=== PATIENT | male | born 1950 | race Caucasian/White ===

== ENCOUNTER 2024-08-28 11:54 | Emergency (ER) | payer MEDICARE, MEDICAID, SELFPAY ==
[2024-08-28 11:55] VITALS: BMI 29.6
[2024-08-28 12:29] VITALS: BP 175/94; PULSE 115; RESP 22; TEMP 36.7; O2SAT 94; BMI 29.6
--- NOTE | 2024-08-28 12:32 | PD.EDRME ---
Rapid Medical Screening Exam E Arrival date/time: 08/28/24 11:54 This is a 74-year-old male that comes into the emergency room with complaints of constipation and abdominal pain. Patient states that he has not been able to have a bowel movement for a few days. Patient has been taking Duca locks with no relief. Patient has a history of COPD high blood pressure hyperlipidemia and diabetes. I have greeted and performed a focused initial assessment of this patient. Initial appropriate labs ordered at this time. A comprehensive ED assessment and evaluation of the patient and analysis of all test and completion of medical decision making process will be conducted by additional ED provider. Chief Complaint: Abdominal Pain Time Seen by Provider: 08/28/24 12:15 Vital signs: Vital Signs Temperature 98.0 F 08/28/24 12:29 Pulse Rate 115 H 08/28/24 12:29 Respiratory Rate 22 H 08/28/24 12:29 Blood Pressure 175/94 H 08/28/24 12:29 Pulse Oximetry (%) 94 L 08/28/24 12:29 Oxygen Delivery Method Room Air 08/28/24 12:29
--- NOTE | 2024-08-28 12:57 | XR_ITS ---
Examination: Abdominal series 3 views including upright PA chest TECHNIQUE: Upright PA chest AP upright AP supine abdomen 3 views Standing comment: August 28, 2024 1417 hours Comparison August 26, 2017 INDICATIONS: Abdominal pain and constipation today. FINDINGS: Atelectasis versus pneumonia right base Moderate air and stool throughout the colon No free air Osseous structures intact IMPRESSION: Atelectasis versus pneumonia right base Moderate air and stool throughout the colon
--- NOTE | 2024-08-28 12:57 | PC.NURSE ---
PT IN TODAY FOR NO BM X2 DAYS. PT STATES THAT HE HAS REGULAR BM'S DAILY. PT DID TAKE OTC MEDICATION AND PRESENTS WITH CRAMPING AND PAIN TO THE LOWER RIGHT QUAD. PT RATE 10/10 AT THIS TIME AND COMES AND GOES. LUCIANO WELDON INTO SEE PT AND WILL FOLLOW THROUGH WITH ORDERS
--- NOTE | 2024-08-28 12:58 | EDNOTE_ITS ---
<Statement entered by Yuko Mckenna MD - 08/28/24 17:25> As co-signing physician, I was present and available for consult prn. I concur with the plan and care as documented by the midlevel provider. ED General RME/HPI General Chief complaint: Abdominal Pain Stated complaint: SEVERE ABD PAIN 02/10. TOOK DULCOLAX FOR CONSTIPAT Time Seen by Provider: 08/28/24 12:15 Arrival date/time: 08/28/24 11:54 Right lower quadrant abdominal pain 2-day history of constipation. Patient states he takes Hasty's daily, usually has a morning constitution after his coffee denies chest pain shortness of breath or difficulty breathing is holding his right lower quadrant at the time of exam. Localized pain 6-8 out of 10 scale sharp waxes and wanes. RME / HPI RME / HPI narrative: 08/28/24 11:54 This is a 74-year-old male that comes into the emergency room with complaints of constipation and abdominal pain. Patient states that he has not been able to have a bowel movement for a few days. Patient has been taking Duca locks with no relief. Patient has a history of COPD high blood pressure hyperlipidemia and diabetes. I have greeted and performed a focused initial assessment of this patient. Initial appropriate labs ordered at this time. A comprehensive ED assessment and evaluation of the patient and analysis of all test and completion of medical decision making process will be conducted by additional ED provider. Related Data Home Medications ?Medication ?Instructions ?Recorded ?Confirmed albuterol sulfate 2.5 mg/3 mL 2.5 mg HHN QID #0 ea 07/22/21 (0.083 %) solution for nebulization simvastatin 40 mg tablet (Zocor) 40 mg PO QDAY #0 tabs 06/21/15 07/23/21 tamsulosin 0.4 mg capsule (Flomax) 0.4 mg PO QDAY ##0 06/21/15 07/23/21 montelukast 10 mg tablet 10 mg PO HS Allergies #0 tab s 04/01/16 07/23/21 (Singulair) albuterol sulfate 90 mcg/actuation 2 puff inhalation Q ID PRN copd 01/11/18 07/23/21 aerosol inhaler (Ventolin HFA) beclomethasone dipropionate 80 2 puff inhalation Q12H PRN copd 01/11/18 07/22/21 mcg/actuation HFA breath activated aerosol (Qvar RediHaler) amlodipine 5 mg tablet 5 mg PO QDAY 07/22/21 finasteride 5 mg tablet 5 mg PO QDAY 07/22/21 fluticasone propionate 50 2 spray intranasal QDAY 07/0307/23/21 mcg/actuation nasal spray,suspension lisinopril 40 mg tablet 40 mg PO QDAY 07/22/2107/23 loratadine 10 mg tablet 10 mg PO QDAY 07/22/2107/23 pioglitazone 15 mg tablet 15 mg PO QDAY 07/22/2107/23 sitagliptin phosphate 100 mg 100 mg PO QDAY 07/22/21 0 07/23/21 tablet (Januvia) ibuprofen 600 mg tablet 600 mg PO TID PRN Pain 07/2307/23/21 lubiprostone 24 mcg capsule 24 mcg PO BID 07/23/21 metformin 500 mg tablet 500 mg PO BID 07/23/2107/23 Previous Rx's ?Medication ?Instructions ?Recorded ciprofloxacin HCl 500 mg tablet 500 mg PO BID #14 tabs 07/23/21 (Cipro) hydrocodone 5 mg-acetaminophen 325 1 tab PO Q6H PRN pa in #30 tabs 07/23/21 mg tablet Allergies Allergy/AdvReac Type Severity Reaction Status Date / Time diphenhydramine (From Allergy Intermediate urine Verified 08/28/24 11:57 Benadryl) retention Review of Systems Review of Systems Narrative Review of Systems: GEN: No fever, no chills, no weight loss EYES: No discharge, no visual changes, no pain HEENT: No ear pain, no congestion, no sore throat PULM: No shortness of breath, no cough, no congestion CV: No chest pain, no dyspnea on exertion, no palpitations GI: No nausea, no vomiting, no diarrhea, + pain, no constipation : No frequency, no urgency, no dysuria MUSC/SKEL: No joint pain, no back pain SKIN: No rash PSYCH: No hallucinations, no depression HEME/LYMPH: No easy bleeding or bruising tendencies NEURO: No weakness, no headache Past Medical History Past Medical History NEUROLOGIC: Negative Neurological Disorders or Seizures CARDIAC: Positive Cardiac Disorders, Hypercholesterolemia (TAKES MED), Hypertension (TAKES MED) and Varicose Veins (KHLOE LEGS HAD PROC); Negative Congestive Heart Failure, Edema or Cellulitis RESPIRATORY: Positive Chronic Obstructive Pulmonary Disease (COPD) (HAS INHALERS,NEBULIZER) and Sleep Apnea (NOT USING CPAP); Negative Tuberculosis GASTROINTESTINAL: Negative Gastrointestinal Disorders or Hepatitis GENITOURINARY: Positive Genitourinary Disorders and Benign Prostatic Hyperplasia (TAKES MED FOR THIS PROC); Negative Renal Disease MUSCULOSKELETAL: Positive Musculoskeletal Disorders and Arthritis ENT: Positive Cataracts (RIGHT 2005) ENDOCRINE: Positive Endocrine Disorders and Diabetes Mellitus Type 2 (TAKES PO MED); Negative Diabetes Mellitus Type 1 HEMATOLOGIC: Negative Blood Disorders PSYCHO/SOCIAL: Positive Anxiety OTHER HISTORY: Positive Chicken Pox, Measles and Mumps; Negative Hospitalization, Autoimmune Disease, Shingles, Falls, Blood Transfusions, Blood Transfusion Reaction, Anesthesia Reactions, Chemotherapy, Radiation Therapy or Cancer Family History FAMILY HISTORY: Positive Family Respiratory Disorders (MOTHER,FATHER,BROTHER (COPD)), Family Gastrointestinal Problems (BROTHER (GALL BLADDER)) and Family Surgery (MOTHER,FATHER,SISTER,BROTHER); Negative Family Psychiatric Problems, Family Cardiac Disorders, Family Cancer or Family Anesthesia Reaction Surgical History SURGICAL: Positive of Shoulder Sx (RIGHT 2017); Negative Pacemaker Social History SMOKING STATUS: Former smoker ED Exam Narrative Physical exam: [General: Obese not in cot no acute distress Head normocephalic HEENT: Within acceptable limits Neck is supple nontender Chest equal chest rise nontender to palpation Respiratory: Clear to auscultation no wheezes crackles or rubs CV: Rate rhythm is regular no murmurs rubs or clicks Abdomen is distended secondary to body habitus soft right lower quadrant tenderness with palpation. Back: No CVA tenderness no spinous process tenderness from cervical spine thoracic and lumbar spine Skin: Intact no petechiae rash induration ulceration or crepitus Extremities: Moving all extremity against resistance cap refill less than 2 seconds neurosensory intact Neuro: Awake alert oriented x3 Glascow coma 15 no focal deficits] Course Course Course Narrative: CT shows moderate amount of stool after an enema was ordered the patient had a large amount of gas and a small amount of stool feels much relief. This time comfortable discharging the patient home there is a concern of a mass in the abdomen which the patient has to follow-up with. Quality Measures none Orders Category Date Time Status Enema Administration NOW Care 08/28/24 15:22 Active Saline [Insert IV] NOW Care 08/28/24 13:[address] abdomen pelvis wo con Stat Exams 08/28/24 13:39 Completed XR abdomen series w chest 1V Stat Exams 08/28/24 12:57 Completed CBC Stat Lab 08/28/24 13:07 Completed Comprehensive Metabolic Panel Stat Lab 08/28/24 13:07 Completed Lipase Stat Lab 08/28/24 13:07 Completed Urinalysis, C/S if Indicated Stat Lab 08/28/24 14:37 Completed Morphine Inj Med 08/28/24 13:03 Discontinued 4 mg IVP X1 ONE Ondansetron Inj [Zofran Inj] Med 08/28/24 13:03 Discontinued 4 mg IV X1 ONE Sodium Chloride 0.9% 1000 ml [Ns] 1,000 ml Med 08/28/24 13:04 Discontinued IV 999 mls/hr Vital Signs Vital signs: Vital Signs Temperature 98.0 F 08/28/24 12:29 Pulse Rate 115 H 08/28/24 12:29 Respiratory Rate 22 H 08/28/24 12:29 Blood Pressure 175/94 H 08/28/24 12:29 Pulse Oximetry (%) 94 L 08/28/24 12:29 Oxygen Delivery Method Room Air 08/28/24 12:29 Discharge Plan Plan Patient Disposition: HOME (Self Care) Patient condition on transfer: Stable Prescriptions/Referrals Prescriptions/Med Rec: No Action albuterol sulfate 2.5 MG/3 ML solution for nebulization 2.5 mg HHN QID Qty: 0 simvastatin [Zocor] 40 MG tablet 40 mg PO QDAY Qty: 0 tamsulosin [Flomax] 0.4 MG capsule,extended release 24hr 0.4 mg PO QDAY Qty: 0 montelukast [Singulair] 10 MG tablet 10 mg PO HS Qty: 0 albuterol sulfate [Ventolin HFA] 90 mcg/actuation Hfa Aerosol Inhaler 2 puff INHALATION QID PRN (Reason: copd) Qvar RediHaler 80 mcg/actuation Hfa Aerosol Breath Activated 2 puff INHALATION Q12H PRN (Reason: copd) pioglitazone 15 mg Tablet 15 mg PO QDAY amlodipine 5 mg Tablet 5 mg PO QDAY lisinopril 40 mg Tablet 40 mg PO QDAY fluticasone propionate 50 mcg/actuation [place],Suspension 2 spray INTRANASAL QDAY finasteride 5 mg Tablet 5 mg PO QDAY loratadine 10 mg Tablet 10 mg PO QDAY Januvia 100 mg Tablet 100 mg PO QDAY hydrocodone-acetaminophen 5-325 mg tablet 1 tab PO Q6H MDD 4 PRN (Reason: pain) Qty: 30 0RF ciprofloxacin HCl [Cipro] 500 mg tablet 500 mg PO BID Qty: 14 0RF metformin 500 mg tablet 500 mg PO BID Patient Comments: TAKE ONE TABLET BY MOUTH TWICE DAILY ibuprofen 600 mg tablet 600 mg PO TID PRN (Reason: Pain) Patient Comments: TAKE ONE TABLET BY MOUTH THREE TIMES DAILY WITH FOOD NEEDED lubiprostone 24 mcg capsule 24 mcg PO BID Referrals: Sheldon Reese MD [Primary Care Provider] - In 1 week Constantin Rivas MD [Physician] - In 1 week Problem List Clinical Impression: Constipation, Abdominal mass Patient/Caregiver Discharge Instructions Other Activity Instructions:: Rest and drink plenty of water take all your medications including a stool softener follow-up with your primary care doctor get a referral for the abdominal mass for colonoscopy. Education Materials: Treating Constipation, ED Constipation (Adult) Print Language: Ivorian Stand Alone Forms: Janey Award Info., Patient Portal Info Letter PA/CASHIER CLERK Supervising Physician PA/CASHIER CLERK Supervising Physician: Kameron Walsh ENP MDM Patient Acuity High Acuity (complete MDM) Clinical Information Provided by: patient Medical Records reviewed [facility] Labs Lab(s) Interpretation(s): CBC shows no acute leukocytosis anemia thrombocytopenia CMP shows no significant electrolyte imbalances other than a glucose of 193 normal renal impairment transaminitis or T. bili elevation Urine pH 7.5 but no infection. Imaging Imaging Interpretation(s): CT abdomen pelvis shows moderate amount of stool in the large intestine however is a question of his tumor versus mass in the colon recommended follow-up colonoscopy. Medication Administration(s) Medication Administration History Discontinued Medications Sodium Chloride (Ns) 1,000 mls @ 999 mls/hr IV .Q1H1M ONE Stop: 08/28/24 14:04 Last Infusion: 08/28/24 15:24 Dose: Infused Documented By: Admin: 08/28/24 13:29 Dose: 999 mls/hr Documented By: VRS Morphine Sulfate (Morphine Sulf Inj 10 Mg/Ml Vial) 4 mg IVP X1 ONE Stop: 08/28/24 13:04 Last Admin: 08/28/24 13:31 Dose: 4 mg Documented By: TRAVIS Ondansetron HCl (Ondansetron Inj 2 Mg/Ml Inj 2 Ml) 4 mg IV X1 ONE; Protocol Stop: 08/28/24 13:04 Last Admin: 08/28/24 13:30 Dose: 4 mg Documented By: TRAVIS Diagnosis Differential Diagnosis ED Complaint MDM: Ileus SBO constipation obstipation
[2024-08-28] MEDS: SODIUM CHLORIDE 0.9% 1000 ML 1,000 ML 999 ML IV (13:29)
[2024-08-28] MEDS: ONDANSETRON INJ 2 MG/ML INJ 2 ML 4 MG IV (13:30)
[2024-08-28] MEDS: MORPHINE SULF INJ 10 MG/ML VIAL 4 MG IVP (13:31)
[2024-08-28 13:34] LABS: Basophils % (Auto) 0 % (0-2.5); Eosinophils # (Auto) 0.2 Thou/mm3 (0.0-0.5); Eosinophils % (Auto) 2 % (0-10); Hematocrit 46.8 % (41.0-53.0); Hemoglobin 15.4 g/dL (13.5-16.0); Immature Granulocytes % (Auto) 0 % (0-0); Immature Granulocytes Auto 0.03 Thou/mm3 (0.00-0.00); Lymphocytes # (Auto) 1.5 Thou/mm3 (1.0-4.8); Lymphocytes % (Auto) 14 % (10-50); Mean Corpuscular HGB Conc 32.9 g/dl (31.0-37.0); Mean Corpuscular Hemoglobin 28.8 pg (25.0-35.0); Mean Corpuscular Volume 88 fL (80-100); Monocytes # (Auto) 0.7 Thou/mm3 (0.0-0.8); Monocytes % (Auto) 6 % (0-12); Neutrophils % (Auto) 77 % (37-80); Nucleated Red Blood Cell % 0 /100 WBC (0); Platelet Count 169 Thou/mm3 (140-440); Red Blood Count 5.35 Miln/mm3 (4.50-5.90); White Blood Count 10.4 Thou/mm3 (3.8-10.6)
--- NOTE | 2024-08-28 13:39 | XR_ITS ---
Examination: CT abdomen and pelvis without contrast. Coronal 3-D reconstructions. Sagittal 2-D reconstructions. Date and time of exam:August 28, 2024 1448 hours INDICATIONS: Severe mid abdominal pain beginning 2 days ago CTDI: vol (mGy): 9.94 DLP: (mGycm): 559 Technique: Axial images of the abdomen have been obtained, 3 mm slice thickness Intravenous contrast material has not been administered. Low dose protocols were performed. One or more of the following dose reduction techniques were used; automated exposure control, adjustment of the mA and/or KV according to patient size, use of iterative reconstruction technique. Findings: Liver is irregular in contour with fatty infiltration No gallstones Spleen not enlarged No pancreatic or adrenal mass Perinephric stranding Fluid and stool distended right colon No pericecal inflammatory change Colonic diverticulosis Also large amounts of stool throughout the transverse and descending colon and rectosigmoid Subtle masslike area in the sigmoid colon axial image 178, measuring 4 cm in transverse dimension and 6 cm in proximal distal dimension Urinary bladder intact IMPRESSION: Primary hepatocellular disease Large amounts of stool throughout the colon Suspicious for subtle mass in the sigmoid colon axial image 178, recommend colonoscopy follow-up to exclude malignant neoplasm of the colon
[2024-08-28 13:46] LABS: Alanine Aminotransferase 30 U/L (10-49); Albumin, Serum 5.3 gm/dL (3.4-4.8); Alkaline Phosphatase 69 U/L (46-116); Anion Gap 9 (7-16); Aspartate Amino Transferase 31 U/L (0-34); BUN/Creatinine Ratio 12 Ratio (12-20); Bilirubin,Total 0.6 mg/dL (0.3-1.2); Blood Urea Nitrogen 15 mg/dL (9-23); Calcium 9.8 mg/dL (8.3-10.6); Calcium (Corrected) 9.8 mg/dL (8.5-10.1); Carbon Dioxide 27.9 mMol/L (20.0-31.0); Chloride 103 mMol/L (98-107); Creatinine (Component) 1.3 mg/dL (0.6-1.3); Estimated Creatinine Clearance 48.8 mL/min (>60); Globulin 2.7 gm/dL (2.3-3.5); Glucose 193 mg/dL (74-106); Lipase 40 U/L (12-53); Osmolality,Calculated 285 (275-295); Potassium 4.8 mMol/L (3.4-5.1); Sodium 140 mMol/L (136-145); eGFR 58 See Note
[2024-08-28 15:17] LABS: Collection Type, Urine Voided
[2024-08-28 15:29] LABS: Bilirubin,Urine Negative (Negative); Blood,Urine Negative (Negative); Clarity,Urine Clear (Clear/Hazy); Color,Urine Lt-Yellow (Lt Yel-Yel); Culture Indicated,Urine Not Indicated; Glucose, Urine Trace (Negative); Ketones,Urine Negative (Negative); Leukocyte Esterase,Urine Negative (Negative); Nitrite,Urine Negative (Negative); PH,Urine 7.5 (5.0-7.0); Protein,Urine Trace (Neg - Trace); RBC,Urine 2 /hpf (0-3); Specific Gravity,Urine 1.021 (1.001-1.035); Squamous Epithelial Cell,Urine < 1 /hpf (0-5); Urobilinogen,Urine Negative mg/dL (0.0-1.0); WBC,Urine 1 /hpf (0-5)
[2024-08-28 16:03] VITALS: BP 164/88; PULSE 94; RESP 18; TEMP 36.6; O2SAT 95
[2024-08-28 17:23] VITALS: BP 158/96; PULSE 88; RESP 15; O2SAT 93
== END 2024-08-28 17:24 | disposition home or self-care (01) ==
PROVIDERS: Nurse Practitioner Family; Emergency Provider Emergency Medicine; PCP Family Medicine
DX: K59.00 Constipation, unspecified (principal); R19.00 Intra-abdominal and pelvic swelling, mass and lump, unspecified site; J44.9 Chronic obstructive pulmonary disease, unspecified; E78.5 Hyperlipidemia, unspecified; E11.9 Type 2 diabetes mellitus without complications
CPT/HCPCS: 36415; 74022; 74176; 80053; 81001; 83690; 85025; 96360; 96361; 99285; J2270; J2405; J7030